=== PATIENT | female | born 1970 | race Caucasian/White ===

== ENCOUNTER 2016-11-25 18:14 | Emergency (ER) | payer OTHER ==
[~2016-11-25] VITALS: Ht 170.1 cm; Wt 116.1 kg
[~2016-11-25 18:14] MED LIST: ACETAMINOPHEN-H1 TA2 PO; AMOXICILLIN500 MG PO; ASPIRIN325 M2 PO; ASPIRIN81 M1 PO; BACTRIM DS 8001 TA1 PO; BISACODYL LAXATI5 MG PO; BUSPAR5 MG PO; CLARITIN REDITAB5 MG PO; CLARITIN10 MG PO; EFFEXOR XR37.5 M1 PO; EFFEXOR XR75 M1 PO; ESTRIOL; ESTROL PO; FLEXERIL5 MG PO; HYDROCODONE BIT1 T11 PO; LATU40TA1 PO; LIDEX0.05% T; Lovenox40 MG/0.4 SC; MAPAP325 MG PO; MILK OF MA400 MG/51 PO; MOTRIN600 MG PO; MOTRIN800 MG PO; Motrin,Rufen800 MG PO; NAPROSYN500 MG PO; OMEPRAZOLE20 M1 PO; ONDANSETRON H2 MG/ML IV; PANTOPRAZOLE SO40 MG PO; PENICILLIN VK500 MG PO; PRILOSEC20 MG PO; PRISTIQ100 MG PO; Peridex 473 ML473 ML PO; TRAMADOL HCL50 MG PO; ULTRAM50 MG PO; VISTARIL50 MG PO; VITAMIN D50000 I3 PO; ZOFRAN ODT4 MG SL; ZOLOFT50 MG PO
[2016-11-25] MEDS ORDERED: PREDNISONE10 MG PO (18:46)
[2016-11-25] MEDS ORDERED: CLARITIN10 MG PO (18:46)
[2016-11-25] MEDS ORDERED: ROBITUSSIN AC 110 ML PO (18:46)
[2016-11-25] MEDS ORDERED: FLONASE ALLERG9.9 ML NAS (18:46)
[2016-11-25] MEDS ORDERED: AVPAK AZITHROM250 M1 PO (20:11)
== END 2016-11-25 20:17 | disposition home or self-care (01) ==
LOC: ED 18:14
DX: J06.9 Acute upper respiratory infection, unspecified (principal); R03.0 Elevated blood-pressure reading, without diagnosis of hypertension; F41.9 Anxiety disorder, unspecified; K21.9 Gastro-esophageal reflux disease without esophagitis; F32.9 Major depressive disorder, single episode, unspecified; F17.200 Nicotine dependence, unspecified, uncomplicated; Z88.8 Allergy status to other drugs, medicaments and biological substances; Z79.899 Other long term (current) drug therapy; Z86.73 Personal history of transient ischemic attack (TIA), and cerebral infarction without residual deficits

== ENCOUNTER 2017-10-18 17:19 | Inpatient (IN) | payer OTHER ==
[~2017-10-18] VITALS: Ht 175.2 cm; Wt 116.1 kg
--- NOTE | ~2017-10-18 | CON ---
[place], [place] REPORT OF CONSULTATION NAME: ARTI MCGUIRE UNIT #: [id number] ROOM: [facility] DOCTOR: SHARON GONZALEZ MD BIRTHDATE: [birth year] DOS: CHIEF COMPLAINT: "I'm doing fine." HISTORY OF PRESENT ILLNESS: A 47-year-old female presented to the ER after taking 30 doxepin and that she did on an impulse after she got into fight with her daughter. Then she regretted that, though she has history of depression for almost 3 years and has been on different antidepressants in the past, now she had been taking Prozac and doxepin. 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 She did not plan to do that, this was just an impulsive act and then she got here and now she is admitted at ICU. Today she reports that she made a mistake and is not feeling depressed. She has no crying spells. She did sleep well at night. Appetite is okay and had her breakfast. There is no hopelessness and no suicidal thoughts at present and she is geovanni for safety. She has an appointment with her counselor and psychiatrist next week. PAST MEDICAL HISTORY: Obesity and GERD. FAMILY HISTORY: Nothing relevant. SUBSTANCE ABUSE: No alcohol or drugs. MENTAL STATUS EXAMINATION: The patient is lady of stated age, moderately obese, sitting comfortably, readily engaged. Fair hygiene. Fair eye contact. Speech normal rate, tone, goal directed. Mood euthymic, broad range affect, did smile appropriately. No evidence of psychosis at present. No nickie or hypomania and no thoughts of self-harm or harm to others and she is geovanni for safety. ASSESSMENT: History of depression. PLAN: She has no prior history of self-injurious behavior and this was an impulsive act which she regrets and she is geovanni for safety and she has followup appointments with her psychiatrist and the counselor, so she can be discharged when medically stable. SHARON GONZALEZ MD CM:CONSTR:REPORT OF CONSULTATION [id number] 10/19/17 1033 interface
[~2017-10-18 17:19] MED LIST changes: +AVPAK AZITHROM250 M1 PO; +FLONASE ALLERG9.9 ML NAS; +PREDNISONE10 MG PO; +ROBITUSSIN AC 110 ML PO
[2017-10-18 17:25] VITALS: BP 121/85
[2017-10-18 17:44] LABS: BILIRUBIN NEGATIVE (NEGATIVE); BLOOD NEGATIVE (NEGATIVE); CLARITY SL CLOUDY (CLEAR); COLOR YELLOW (YELLOW); GLUCOSE NEGATIVE (NEGATIVE); KETONE NEGATIVE (NEGATIVE); LEUKO ESTERASE NEGATIVE (NEGATIVE); NITRITE NEGATIVE (NEGATIVE); UROBILINOGEN 0.2 E.U./dl (0.2-1.0)
[2017-10-18 17:51] LABS: BACTERIA 4+; EPITHELIAL CELLS 20-25; RBC 0-2 rbc/hpf (0-2)
[2017-10-18 17:52] LABS: URINE AMPHETAMINES < 1000 (1000ng/ml); URINE BARBITURATES < 200 (200ng/ml); URINE BENZODIAZEPINES < 200 (200ng/ml); URINE CANNABINOIDS (THC) < 50 (50ng/ml); URINE COCAINE < 300 (300ng/ml); URINE METHADONE < 300 (300ng/ml); URINE OPIATES < 300 (300ng/ml)
[2017-10-18 17:53] LABS: URINE PHENCYCLIDINE < 25 (25ng/ml)
[2017-10-18 17:57] LABS: BASO # 0.1 10*3/uL (0.0-0.1); BASO % 0.5 % (0.0-1.0); EOS # 0.1 10*3/uL (0.0-0.4); HEMATOCRIT 43.1 % (37.0-47.0); HEMOGLOBIN 14.1 g/dl (12.0-16.0); LYMPH # 3.8 10*3/uL (1.3-4.4); LYMPH % 34.1 % (27.0-41.0); MEAN CELL VOLUME 84.8 fl (81.0-99.0); MEAN CORPUSCULAR HGB 27.8 pg (27.0-31.0); MEAN CORPUSCULAR HGB CONC 32.7 g/dl (33.0-37.0); MEAN PLATELET VOLUME 10.6 fl (9.6-12.3); MONO # 0.7 10*3/uL (0.1-1.0); MONO % 5.9 % (3.0-9.0); NEUT # 6.5 10*3/uL (2.3-7.9); NEUT % 58.3 % (47.0-73.0); PLATELET COUNT AUTOMATED 407 10*3/uL (130-400); RED BLOOD COUNT 5.08 10*6/uL (4.10-5.10); RED CELL DISTRI WIDTH 14.4 % (0-14.5); WHITE BLOOD COUNT 11.1 10*3/uL (4.8-10.8)
[2017-10-18 17:58] VITALS: BP 121/72
[2017-10-18 18:11] LABS: ACETAMINOPHEN (TYLENOL) < 2.0 ug/ml (10-30); ALBUMIN 3.5 gm/dl (3.1-4.5); ALKALINE PHOSPHATASE 109 U/L (45-117); BUN 12 mg/dl (7-24); CHLORIDE 111 mmol/L (98-107); CREATININE 0.97 mg/dL (0.55-1.02); POTASSIUM 3.4 mmol/L (3.5-5.1); SGOT/AST 13 IU/L (3-35); SGPT/ALT 27 U/L (12-78); SODIUM 141 mmol/L (136-145); TOTAL PROTEIN 7.5 gm/dL (6.4-8.2)
[2017-10-18] MEDS ORDERED: HYDROXYZINE HCL25 M1 PO (18:14)
[2017-10-18] MEDS ORDERED: ALL DAY ALLERGY10 MG PO (18:15)
[2017-10-18] MEDS ORDERED: TOPIRAMATE100 M2 PO (18:17)
[2017-10-18 18:19] LABS: B-hCG (QUALITATIVE) BORDERLINE (NEGATIVE); ETHYL ALCOHOL < 3.0 mg/dl (<3)
[2017-10-18] MEDS ORDERED: PRAMIPEXOLE DIHY1 MG PO (18:19)
[2017-10-18] MEDS ORDERED: FLUOXETINE HYDR20 M1 PO (18:20)
[2017-10-18] MEDS ORDERED: NUVIGIL150 MG PO (18:21)
[2017-10-18] MEDS ORDERED: LATUDA40 M1 PO (18:23)
[2017-10-18 19:25] VITALS: BP 112/67
[2017-10-18 20:30] VITALS: BP 101/65
--- NOTE | 2017-10-18 20:30 | NUR ---
A 47, admitted to ICCU, under the services of FANI Mason DO with a diagnosis of OVERDOSE. Chief complaint is SUICIDE IDEATIONS. Patient arrived via ambulatory from ER. Monitor applied. Initial assessment completed. Vital signs taken and recorded. FANI MASON DO notified of admission to the unit. Orders received. See assessment for past medical history, medications and allergies. Patient and/or family oriented to unit. [facility] ICCU visitation policy reviewed. Clothing/patient valuable form completed. DOMINICK KO
[2017-10-19] VITALS (25 sets, daily range): BP systolic 90–139; BP diastolic 42–72
--- NOTE | 2017-10-19 | NUR ---
PATIENT BP 97/53 CALLED SARAI ORDRE IV FLUID BOLUS.
[2017-10-19 00:25] LABS: BUN 9 mg/dl (7-24); CHLORIDE 115 mmol/L (98-107); CREATININE 0.81 mg/dL (0.55-1.02); POTASSIUM 3.7 mmol/L (3.5-5.1); SODIUM 144 mmol/L (136-145)
--- NOTE | 2017-10-19 01:30 | NUR ---
CALLED TEJA MOON WITH PATIENTS BP 83/48 ANOTHER FLUID BOLUS ORDRED AND RAFA ALL AFTER FINISHED.
--- NOTE | 2017-10-19 01:53 | NUR ---
CALLED DOCTOR NONA PATIENT BP IS 81/51 HE SAID OK HE WOULD LET DOCTOR SARAI KNOW.
--- NOTE | 2017-10-19 02:30 | NUR ---
PATIENT STARTED ON LEVOPHED FOR PATIENTS BP CURRENTLY OF 90/46.
[2017-10-19 06:05] LABS: BASO # 0.1 10*3/uL (0.0-0.1); BASO % 0.5 % (0.0-1.0); EOS # 0.1 10*3/uL (0.0-0.4); EOS % 1.4 % (1.0-4.0); HEMATOCRIT 39.4 % (37.0-47.0); HEMOGLOBIN 12.7 g/dl (12.0-16.0); LYMPH # 4.3 10*3/uL (1.3-4.4); LYMPH % 47.4 % (27.0-41.0); MEAN CELL VOLUME 87.6 fl (81.0-99.0); MEAN CORPUSCULAR HGB 28.2 pg (27.0-31.0); MEAN CORPUSCULAR HGB CONC 32.2 g/dl (33.0-37.0); MONO # 0.7 10*3/uL (0.1-1.0); MONO % 8.1 % (3.0-9.0); NEUT # 3.9 10*3/uL (2.3-7.9); NEUT % 42.5 % (47.0-73.0); PLATELET COUNT AUTOMATED 362 10*3/uL (130-400); RED CELL DISTRI WIDTH 14.9 % (0-14.5); WHITE BLOOD COUNT 9.1 10*3/uL (4.8-10.8)
[2017-10-19 06:18] LABS: ACT PARTIAL THROMBO TIME 26.7 SECONDS (20.8-31.5)
[2017-10-19 06:19] LABS: BUN 8 mg/dl (7-24); CHLORIDE 118 mmol/L (98-107); CHOLESTEROL 178 mg/dL (<200); CREATININE 0.79 mg/dL (0.55-1.02); PHOSPHOROUS 2.1 mg/dL (2.5-4.9); POTASSIUM 3.8 mmol/L (3.5-5.1); SGOT/AST 11 IU/L (3-35); SGPT/ALT 20 U/L (12-78); SODIUM 145 mmol/L (136-145); TOTAL PROTEIN 6.1 gm/dL (6.4-8.2); TRIGLYCERIDES 206 mg/dl (<150); VLDL CHOLESTEROL 41 mg/dL (6-40)
[2017-10-19 06:26] LABS: ALKALINE PHOSPHATASE 87 U/L (45-117); HDL CHOLESTEROL 36 mg/dl (40-60); LDL CHOLESTEROL 101 mg/dL (9-159)
--- NOTE | 2017-10-19 07:15 | NUR ---
LEVAPHED TITRATED OFF MAP >66
[2017-10-19 08:41] LABS: VITAMIN D, 25-HYDROXY 16.4 ng/mL (30-100)
--- NOTE | 2017-10-19 08:47 | NUR ---
DR SINHA NOTIFIED OF NEW CONSULT
--- NOTE | 2017-10-19 09:00 | NUR ---
[facility] [employer] CALLED AND AND UPDATED AMD THEY ARE OK WITH PTS DIS CHARGE TO HOME
--- NOTE | 2017-10-19 10:30 | NUR ---
DR SINHA HERE AND CLEARED PT FOR DISCHARGE HOME
--- NOTE | 2017-10-19 12:30 | NUR ---
DC TO HOME
== END 2017-10-19 12:30 | disposition home or self-care (01) | DRG 918 ==
LOC: ED 17:19 → EDHOLD 17:53 → ICCU 19:15
PROVIDERS: Emergency Medicine; Family Medicine; ADMIT Emergency Medicine
DX: T43.012A Poisoning by tricyclic antidepressants, intentional self-harm, initial encounter (principal); R65.10 Systemic inflammatory response syndrome (SIRS) of non-infectious origin without acute organ dysfunction; I95.9 Hypotension, unspecified; R45.851 Suicidal ideations; F33.9 Major depressive disorder, recurrent, unspecified; E87.6 Hypokalemia; F19.90 Other psychoactive substance use, unspecified, uncomplicated; E66.9 Obesity, unspecified; K21.9 Gastro-esophageal reflux disease without esophagitis; E78.5 Hyperlipidemia, unspecified; G25.81 Restless legs syndrome; R73.9 Hyperglycemia, unspecified; F41.1 Generalized anxiety disorder; F17.200 Nicotine dependence, unspecified, uncomplicated; Z90.49 Acquired absence of other specified parts of digestive tract; Z71.6 Tobacco abuse counseling; Y92.89 Other specified places as the place of occurrence of the external cause; Z79.899 Other long term (current) drug therapy; Z90.710 Acquired absence of both cervix and uterus; Z90.81 Acquired absence of spleen; Z82.49 Family history of ischemic heart disease and other diseases of the circulatory system; Z82.3 Family history of stroke; Z83.6 Family history of other diseases of the respiratory system; Z68.37 Body mass index [BMI] 37.0-37.9, adult; I25.2 Old myocardial infarction

== ENCOUNTER 2017-11-30 21:16 | Emergency (ER) | payer OTHER ==
[~2017-11-30] VITALS: Ht 170.1 cm; Wt 120.7 kg
[~2017-11-30 21:16] MED LIST changes: +ALL DAY ALLERGY10 MG PO; +FLUOXETINE HYDR20 M1 PO; +HYDROXYZINE HCL25 M1 PO; +LATUDA40 M1 PO; +NUVIGIL150 MG PO; +PRAMIPEXOLE DIHY1 MG PO; +TOPIRAMATE100 M2 PO
[2017-11-30] MEDS ORDERED: MIRTAZAPINE15 M2 PO (21:27)
[2017-11-30] MEDS ORDERED: OLANZAPINE5 MG PO (21:28)
[2017-11-30 23:34] LABS: HEMATOCRIT 40.9 % (37.0-47.0); HEMOGLOBIN 13.5 g/dl (12.0-16.0); MEAN CELL VOLUME 86.8 fl (81.0-99.0); MEAN CORPUSCULAR HGB 28.7 pg (27.0-31.0); MEAN PLATELET VOLUME 10.7 fl (9.6-12.3); PLATELET COUNT AUTOMATED 370 10*3/uL (130-400); RED BLOOD COUNT 4.71 10*6/uL (4.10-5.10); RED CELL DISTRI WIDTH 15.1 % (0-14.5); WHITE BLOOD COUNT 10.7 10*3/uL (4.8-10.8)
[2017-11-30 23:40] LABS: ALBUMIN 3.4 gm/dl (3.1-4.5); ALKALINE PHOSPHATASE 99 U/L (45-117); BUN 14 mg/dl (7-24); CHLORIDE 109 mmol/L (98-107); CREATININE 0.78 mg/dL (0.55-1.02); POTASSIUM 3.5 mmol/L (3.5-5.1); SGOT/AST 17 IU/L (3-35); SGPT/ALT 31 U/L (12-78); SODIUM 139 mmol/L (136-145); TOTAL PROTEIN 6.8 gm/dL (6.4-8.2)
[2017-11-30 23:52] LABS: BASOPHILS 1 % (0-1); PLATELET SUFFICIENCY NORMAL (NORMAL); TOTAL CELLS COUNTED 100 #CELLS
[2017-12-01 01:54] LABS: BILIRUBIN NEGATIVE (NEGATIVE); BLOOD NEGATIVE (NEGATIVE); CLARITY CLEAR (CLEAR); COLOR YELLOW (YELLOW); GLUCOSE NEGATIVE (NEGATIVE); KETONE NEGATIVE (NEGATIVE); LEUKO ESTERASE NEGATIVE (NEGATIVE); NITRITE NEGATIVE (NEGATIVE); PH 5.5 (5.0-9.0); UROBILINOGEN 0.2 E.U./dl (0.2-1.0)
[2017-12-01 02:05] LABS: RBC 0-2 rbc/hpf (0-2); WBC 0-2 wbc/hpf (0-5)
[2017-12-01] MEDS ORDERED: ANAPROX DS550 MG PO (03:34)
[2017-12-01] MEDS ORDERED: ULTRAM50 MG PO (03:34)
== END 2017-12-01 04:10 | disposition home or self-care (01) ==
LOC: ED 21:16
PROVIDERS: Emergency Medicine Emergency Medical Services
DX: B34.9 Viral infection, unspecified (principal); M25.572 Pain in left ankle and joints of left foot; M25.571 Pain in right ankle and joints of right foot; F17.200 Nicotine dependence, unspecified, uncomplicated; E78.5 Hyperlipidemia, unspecified; K21.9 Gastro-esophageal reflux disease without esophagitis; E66.9 Obesity, unspecified; E11.65 Type 2 diabetes mellitus with hyperglycemia; Z90.49 Acquired absence of other specified parts of digestive tract; Z90.710 Acquired absence of both cervix and uterus; Z79.899 Other long term (current) drug therapy; Z88.5 Allergy status to narcotic agent; Z68.39 Body mass index [BMI] 39.0-39.9, adult

== ENCOUNTER 2018-01-20 17:52 | Inpatient (IN) | payer OTHER ==
[~2018-01-20] VITALS: Ht 170.1 cm; Wt 124.3 kg
--- NOTE | ~2018-01-20 | ST ---
[place], [place] EXERCISE STRESS TEST REPORT NAME: ARIT MCGUIRE [facility] #: [id number] UNIT #: [id number] ROOM: 529 DOCTOR: MADHAV CARMICHAEL MD BIRTHDATE: [birth year] DOS: 01/21/2018 LEXISCAN STRESS EKG REFERRING PHYSICIAN: Dr. Espinal. INDICATION: Central chest pain. The patient underwent standard protocol Lexiscan stress EKG. Baseline EKG showed normal sinus rhythm, no ischemic changes. Baseline heart rate is 65 with a blood pressure 116/70. The patient's peak heart rate was 92 with a blood pressure of 102/80. The patient had no chest pain, no shortness of breath, no EKG changes. SUMMARY OF FINDINGS: Unremarkable Lexiscan stress EKG. Please see separate report for perfusion scan results. MADHAV CARMICHAEL MD CM:STRESS:EXERCISE STRESS TEST REPORT [id number] MADHAV CARMICHAEL MD
[~2018-01-20 17:52] MED LIST changes: +ANAPROX DS550 MG PO; +MIRTAZAPINE15 M2 PO; +OLANZAPINE5 MG PO
[2018-01-20 18:10] LABS: HEMATOCRIT 41.2 % (37.0-47.0); HEMOGLOBIN 13.6 g/dl (12.0-16.0); MEAN CELL VOLUME 86.2 fl (81.0-99.0); MEAN CORPUSCULAR HGB 28.5 pg (27.0-31.0); MEAN PLATELET VOLUME 10.7 fl (9.6-12.3); PLATELET COUNT AUTOMATED 381 10*3/uL (130-400); RED BLOOD COUNT 4.78 10*6/uL (4.10-5.10); RED CELL DISTRI WIDTH 14.6 % (0-14.5)
[2018-01-20 18:21] LABS: ACT PARTIAL THROMBO TIME 25.7 SECONDS (20.8-31.5); INTERNATIONAL NORM RATIO 0.9 (2.0-3.5)
[2018-01-20 18:22] VITALS: BP 138/91
[2018-01-20 18:26] LABS: ALBUMIN 3.8 gm/dl (3.1-4.5); ALKALINE PHOSPHATASE 99 U/L (45-117); BUN 10 mg/dl (7-24); CHLORIDE 106 mmol/L (98-107); POTASSIUM 4.2 mmol/L (3.5-5.1); SGOT/AST 32 IU/L (3-35); SGPT/ALT 32 U/L (12-78); SODIUM 136 mmol/L (136-145); TOTAL PROTEIN 7.7 gm/dL (6.4-8.2)
[2018-01-20 18:27] LABS: TROPONIN I < 0.015 ng/ml (<0.045)
[2018-01-20 18:29] LABS: ATYPICAL LYMPHS 4 % (0-0); BASOPHILS 1 % (0-1); PLATELET SUFFICIENCY NORMAL (NORMAL); TARGET CELLS FEW; TOTAL CELLS COUNTED 100 #CELLS
[2018-01-20] MEDS ORDERED: GEODON40 MG PO (18:32)
[2018-01-20 18:50] VITALS: BP 115/74
[2018-01-20 19:40] VITALS: BP 115/60
[2018-01-20 20:00] VITALS: BP 117/66
[2018-01-20] MEDS ORDERED: TRAMADOL HCL50 MG PO (20:40)
[2018-01-20] MEDS ORDERED: IBU800 M1 PO (20:43)
[2018-01-21] VITALS: BP 106/66
[2018-01-21 06:01] LABS: BASO # 0.1 10*3/uL (0.0-0.1); BASO % 0.9 % (0.0-1.0); EOS # 0.2 10*3/uL (0.0-0.4); EOS % 1.9 % (1.0-4.0); HEMATOCRIT 42.3 % (37.0-47.0); HEMOGLOBIN 13.7 g/dl (12.0-16.0); LYMPH # 4.9 10*3/uL (1.3-4.4); LYMPH % 52.5 % (27.0-41.0); MEAN CELL VOLUME 89.1 fl (81.0-99.0); MEAN CORPUSCULAR HGB 28.8 pg (27.0-31.0); MEAN CORPUSCULAR HGB CONC 32.4 g/dl (33.0-37.0); MEAN PLATELET VOLUME 11.1 fl (9.6-12.3); MONO # 0.7 10*3/uL (0.1-1.0); MONO % 7.8 % (3.0-9.0); NEUT # 3.4 10*3/uL (2.3-7.9); NEUT % 36.7 % (47.0-73.0); PLATELET COUNT AUTOMATED 398 10*3/uL (130-400); RED BLOOD COUNT 4.75 10*6/uL (4.10-5.10); RED CELL DISTRI WIDTH 14.9 % (0-14.5); WHITE BLOOD COUNT 9.3 10*3/uL (4.8-10.8)
[2018-01-21 06:11] LABS: BUN 16 mg/dl (7-24); CHLORIDE 111 mmol/L (98-107); CHOLESTEROL 202 mg/dL (<200); CREATININE 0.99 mg/dL (0.55-1.02); POTASSIUM 4.2 mmol/L (3.5-5.1); SODIUM 142 mmol/L (136-145); TRIGLYCERIDES 228 mg/dl (<150); VLDL CHOLESTEROL 46 mg/dL (6-40)
[2018-01-21 06:44] LABS: HDL CHOLESTEROL 39 mg/dl (40-60); LDL CHOLESTEROL 117 mg/dL (9-159)
[2018-01-21 08:00] VITALS: BP 97/63
[2018-01-21 08:17] LABS: VITAMIN D, 25-HYDROXY 13.3 ng/mL (30-100)
[2018-01-21 12:00] VITALS: BP 110/59
[2018-01-21] MEDS ORDERED: TOPAMAX100 M1 PO (12:55)
[2018-01-21 16:00] VITALS: BP 108/55
[2018-01-21] MEDS ORDERED: ATORVASTATIN CA40 M1 PO (16:28)
[2018-01-21] MEDS ORDERED: NICODERM CQ1 EAC2 T (16:33)
== END 2018-01-21 17:36 | disposition home or self-care (01) | DRG 391 ==
LOC: ED 17:52 → 5E 18:44 → EDHOLD 18:44 → 5E 19:06
PROVIDERS: Internal Medicine; Nurse Practitioner Family
PROC: 4A02XM4 Measurement of Cardiac Total Activity, External Approach (ICD-10-PCS; principal; 2018-01-21)
PROC: 3E073KZ Introduction of Other Diagnostic Substance into Coronary Artery, Percutaneous Approach (ICD-10-PCS; 2018-01-21)
DX: K21.9 Gastro-esophageal reflux disease without esophagitis (principal); G93.5 Compression of brain; R65.10 Systemic inflammatory response syndrome (SIRS) of non-infectious origin without acute organ dysfunction; F33.9 Major depressive disorder, recurrent, unspecified; Z68.41 Body mass index [BMI] 40.0-44.9, adult; E78.5 Hyperlipidemia, unspecified; F41.1 Generalized anxiety disorder; R73.9 Hyperglycemia, unspecified; E66.9 Obesity, unspecified; R03.0 Elevated blood-pressure reading, without diagnosis of hypertension; R73.03 Prediabetes; H54.61 Unqualified visual loss, right eye, normal vision left eye; I34.0 Nonrheumatic mitral (valve) insufficiency; F17.210 Nicotine dependence, cigarettes, uncomplicated; Z82.3 Family history of stroke; Z82.49 Family history of ischemic heart disease and other diseases of the circulatory system; Z88.8 Allergy status to other drugs, medicaments and biological substances; Z71.6 Tobacco abuse counseling; Z82.5 Family history of asthma and other chronic lower respiratory diseases; Z90.49 Acquired absence of other specified parts of digestive tract; Z90.710 Acquired absence of both cervix and uterus; Z90.81 Acquired absence of spleen; Z79.899 Other long term (current) drug therapy

== ENCOUNTER 2018-02-22 19:08 | Emergency (ER) | payer OTHER ==
[~2018-02-22] VITALS: Ht 170.1 cm; Wt 120.2 kg
[~2018-02-22 19:08] MED LIST changes: +ATORVASTATIN CA40 M1 PO; +GEODON40 MG PO; +IBU800 M1 PO; +NICODERM CQ1 EAC2 T; +TOPAMAX100 M1 PO
[2018-02-22 20:30] LABS: HEMATOCRIT 43.1 % (37.0-47.0); HEMOGLOBIN 13.9 g/dl (12.0-16.0); MEAN CELL VOLUME 87.6 fl (81.0-99.0); MEAN CORPUSCULAR HGB 28.3 pg (27.0-31.0); MEAN CORPUSCULAR HGB CONC 32.3 g/dl (33.0-37.0); MEAN PLATELET VOLUME 10.7 fl (9.6-12.3); PLATELET COUNT AUTOMATED 369 10*3/uL (130-400); RED BLOOD COUNT 4.92 10*6/uL (4.10-5.10); RED CELL DISTRI WIDTH 14.6 % (0-14.5); WHITE BLOOD COUNT 10.8 10*3/uL (4.8-10.8)
[2018-02-22 20:43] LABS: ALBUMIN 3.5 gm/dl (3.1-4.5); ALKALINE PHOSPHATASE 108 U/L (45-117); BUN 12 mg/dl (7-24); CHLORIDE 121 mmol/L (98-107); CREATININE 0.94 mg/dL (0.55-1.02); POTASSIUM 4.3 mmol/L (3.5-5.1); SGOT/AST 14 IU/L (3-35); SGPT/ALT 28 U/L (12-78); SODIUM 155 mmol/L (136-145); TOTAL PROTEIN 7.2 gm/dL (6.4-8.2); URIC ACID 4.5 mg/dL (2.6-6.0)
[2018-02-22 21:12] LABS: ATYPICAL LYMPHS 8 % (0-0); PLATELET SUFFICIENCY NORMAL (NORMAL); TOTAL CELLS COUNTED 100 #CELLS
[2018-02-22] MEDS ORDERED: Motrin,Rufen800 MG PO (21:25)
== END 2018-02-22 21:30 | disposition home or self-care (01) ==
LOC: ED 19:08
PROVIDERS: Emergency Medicine Emergency Medical Services
DX: M65.9 Synovitis and tenosynovitis, unspecified (principal); K21.9 Gastro-esophageal reflux disease without esophagitis; E11.9 Type 2 diabetes mellitus without complications; F17.200 Nicotine dependence, unspecified, uncomplicated; Z88.8 Allergy status to other drugs, medicaments and biological substances; Z79.899 Other long term (current) drug therapy

== ENCOUNTER 2018-02-28 23:32 | Emergency (ER) | payer OTHER ==
[~2018-02-28] VITALS: Ht 170.1 cm; Wt 122.0 kg
== END 2018-03-01 01:54 | disposition home or self-care (01) ==
LOC: ED 23:32
DX: R51 Headache (principal); F17.200 Nicotine dependence, unspecified, uncomplicated; Z90.49 Acquired absence of other specified parts of digestive tract; Z90.710 Acquired absence of both cervix and uterus; Z79.899 Other long term (current) drug therapy; Z88.5 Allergy status to narcotic agent

== ENCOUNTER 2018-03-01 22:10 | Emergency (ER) | payer OTHER ==
[~2018-03-01] VITALS: Ht 170.1 cm; Wt 122.0 kg
== END 2018-03-02 00:45 | disposition home or self-care (01) ==
LOC: ED 22:10
DX: G43.909 Migraine, unspecified, not intractable, without status migrainosus (principal); F17.200 Nicotine dependence, unspecified, uncomplicated; E78.5 Hyperlipidemia, unspecified; K21.9 Gastro-esophageal reflux disease without esophagitis; E66.01 Morbid (severe) obesity due to excess calories; E11.65 Type 2 diabetes mellitus with hyperglycemia; Z90.49 Acquired absence of other specified parts of digestive tract; Z98.890 Other specified postprocedural states; Z90.710 Acquired absence of both cervix and uterus; Z88.5 Allergy status to narcotic agent; Z79.899 Other long term (current) drug therapy

== ENCOUNTER 2018-03-22 22:21 | Emergency (ER) | payer OTHER ==
[~2018-03-22] VITALS: Ht 170.1 cm; Wt 118.8 kg
== END 2018-03-23 00:23 | disposition home or self-care (01) ==
LOC: ED 22:21
DX: S60.221A Contusion of right hand, initial encounter (principal); S00.81XA Abrasion of other part of head, initial encounter; R51 Headache; F17.200 Nicotine dependence, unspecified, uncomplicated; Z90.710 Acquired absence of both cervix and uterus; Z98.890 Other specified postprocedural states; Z90.49 Acquired absence of other specified parts of digestive tract; Z79.899 Other long term (current) drug therapy; Z88.5 Allergy status to narcotic agent; Y04.0XXA Assault by unarmed brawl or fight, initial encounter; Y93.89 Activity, other specified; Y92.099 Unspecified place in other non-institutional residence as the place of occurrence of the external cause; Y99.9 Unspecified external cause status

== ENCOUNTER 2018-04-17 19:27 | Emergency (ER) | payer OTHER ==
[~2018-04-17] VITALS: Ht 170.1 cm; Wt 114.3 kg
== END 2018-04-17 20:09 | disposition home or self-care (01) ==
LOC: ED 19:27
DX: S05.02XA Injury of conjunctiva and corneal abrasion without foreign body, left eye, initial encounter (principal); F17.200 Nicotine dependence, unspecified, uncomplicated; E78.5 Hyperlipidemia, unspecified; K21.9 Gastro-esophageal reflux disease without esophagitis; E11.65 Type 2 diabetes mellitus with hyperglycemia; G43.909 Migraine, unspecified, not intractable, without status migrainosus; Z90.710 Acquired absence of both cervix and uterus; Z90.49 Acquired absence of other specified parts of digestive tract; Z98.890 Other specified postprocedural states; Z79.899 Other long term (current) drug therapy; Z88.5 Allergy status to narcotic agent; X58.XXXA Exposure to other specified factors, initial encounter; Y93.89 Activity, other specified; Y92.89 Other specified places as the place of occurrence of the external cause; Y99.9 Unspecified external cause status

== ENCOUNTER 2018-11-06 13:34 | Emergency (ER) | payer OTHER ==
[~2018-11-06] VITALS: Ht 170.1 cm; Wt 118.8 kg
[2018-11-06] MEDS ORDERED: LEVOFLOXACIN500 MG PO (16:03)
[2018-11-06] MEDS ORDERED: Fioricet 325 MG1 TAB PO (16:03)
[2019-04-09] MEDS ORDERED: LATUDA60 M1 PO (12:16)
[2019-04-09] MEDS ORDERED: VISTARIL50 MG PO (16:23)
[2019-04-09] MEDS ORDERED: NAPROXEN500 M1 PO (16:24)
[2019-04-09] MEDS ORDERED: PROMETHAZINE25 M1 PO (16:26)
[2019-04-09] MEDS ORDERED: ACID REDUCER 1150 MG PO (16:28)
== END 2018-11-06 16:11 | disposition home or self-care (01) ==
LOC: ED 13:34
DX: J40 Bronchitis, not specified as acute or chronic (principal); J32.9 Chronic sinusitis, unspecified; E78.5 Hyperlipidemia, unspecified; K21.9 Gastro-esophageal reflux disease without esophagitis; G43.909 Migraine, unspecified, not intractable, without status migrainosus; E66.01 Morbid (severe) obesity due to excess calories; F17.200 Nicotine dependence, unspecified, uncomplicated; Z88.8 Allergy status to other drugs, medicaments and biological substances; Z79.899 Other long term (current) drug therapy; Z90.49 Acquired absence of other specified parts of digestive tract; Z90.710 Acquired absence of both cervix and uterus

== ENCOUNTER 2018-11-18 20:23 | Emergency (ER) | payer OTHER ==
[~2018-11-18] VITALS: Ht 170.1 cm; Wt 117.9 kg
[~2018-11-18 20:23] MED LIST changes: +Fioricet 325 MG1 TAB PO; +LEVOFLOXACIN500 MG PO
== END 2018-11-18 22:03 | disposition home or self-care (01) ==
LOC: ED 20:23
DX: G43.909 Migraine, unspecified, not intractable, without status migrainosus (principal); F17.200 Nicotine dependence, unspecified, uncomplicated; Z79.899 Other long term (current) drug therapy; Z88.8 Allergy status to other drugs, medicaments and biological substances

== ENCOUNTER 2018-11-22 20:18 | Emergency (ER) | payer OTHER ==
[~2018-11-22] VITALS: Ht 170.1 cm; Wt 117.9 kg
[2019-04-09] MEDS ORDERED: LATUDA60 M1 PO (12:16)
[2019-04-09] MEDS ORDERED: VISTARIL50 MG PO (16:23)
[2019-04-09] MEDS ORDERED: NAPROXEN500 M1 PO (16:24)
[2019-04-09] MEDS ORDERED: PROMETHAZINE25 M1 PO (16:26)
[2019-04-09] MEDS ORDERED: ACID REDUCER 1150 MG PO (16:28)
== END 2018-11-23 00:34 | disposition home or self-care (01) ==
LOC: ED 20:18
DX: G43.909 Migraine, unspecified, not intractable, without status migrainosus (principal); K21.9 Gastro-esophageal reflux disease without esophagitis; E66.01 Morbid (severe) obesity due to excess calories; F17.200 Nicotine dependence, unspecified, uncomplicated; Z88.8 Allergy status to other drugs, medicaments and biological substances; Z79.899 Other long term (current) drug therapy

== ENCOUNTER 2018-12-01 18:34 | Emergency (ER) | payer OTHER ==
[~2018-12-01] VITALS: Ht 170.1 cm; Wt 120.2 kg
[2018-12-01] MEDS ORDERED: FLONASE ALLERG9.9 ML NAS (19:55)
[2018-12-01] MEDS ORDERED: ONDANSETRON4 MG SL (19:55)
[2018-12-01] MEDS ORDERED: CEPACOL SORE T1 EACH MM (19:56)
== END 2018-12-01 20:10 | disposition home or self-care (01) ==
LOC: ED 18:34
DX: J06.9 Acute upper respiratory infection, unspecified (principal); E78.5 Hyperlipidemia, unspecified; G43.909 Migraine, unspecified, not intractable, without status migrainosus; E66.01 Morbid (severe) obesity due to excess calories; F17.200 Nicotine dependence, unspecified, uncomplicated; Z90.710 Acquired absence of both cervix and uterus; Z90.49 Acquired absence of other specified parts of digestive tract

== ENCOUNTER 2018-12-28 16:43 | Emergency (ER) | payer OTHER ==
[~2018-12-28] VITALS: Ht 170.1 cm; Wt 120.2 kg
[~2018-12-28 16:43] MED LIST changes: +CEPACOL SORE T1 EACH MM; +ONDANSETRON4 MG SL
[2019-04-09] MEDS ORDERED: LATUDA60 M1 PO (12:16)
[2019-04-09] MEDS ORDERED: VISTARIL50 MG PO (16:23)
[2019-04-09] MEDS ORDERED: NAPROXEN500 M1 PO (16:24)
[2019-04-09] MEDS ORDERED: PROMETHAZINE25 M1 PO (16:26)
[2019-04-09] MEDS ORDERED: ACID REDUCER 1150 MG PO (16:28)
== END 2018-12-28 19:02 | disposition home or self-care (01) ==
LOC: ED 16:43
DX: G43.909 Migraine, unspecified, not intractable, without status migrainosus (principal); F17.200 Nicotine dependence, unspecified, uncomplicated; Z90.710 Acquired absence of both cervix and uterus; Z90.49 Acquired absence of other specified parts of digestive tract; Z88.8 Allergy status to other drugs, medicaments and biological substances; Z79.899 Other long term (current) drug therapy

== ENCOUNTER → 2019-01-04 | Outpatient (CLI) | payer OTHER ==
[~2019-01-04] MED LIST changes: +ACID REDUCER 1150 MG PO; +CILOXAN 5 ML5 ML OPH; +IBUPROFEN600 MG PO; +LATUDA60 M1 PO; +NAPROXEN500 M1 PO; +PROMETHAZINE25 M1 PO
[2019-01-04 08:08] LABS: BASO # 0.1 10*3/uL (0.0-0.1); BASO % 0.8 % (0.0-1.0); EOS # 0.2 10*3/uL (0.0-0.4); EOS % 2.1 % (1.0-4.0); HEMATOCRIT 44.3 % (37.0-47.0); HEMOGLOBIN 14.4 g/dl (12.0-16.0); LYMPH # 4.9 10*3/uL (1.3-4.4); LYMPH % 46.6 % (27.0-41.0); MEAN CELL VOLUME 89.5 fl (81.0-99.0); MEAN CORPUSCULAR HGB 29.1 pg (27.0-31.0); MEAN CORPUSCULAR HGB CONC 32.5 g/dl (33.0-37.0); MEAN PLATELET VOLUME 10.5 fl (9.6-12.3); MONO # 0.7 10*3/uL (0.1-1.0); MONO % 6.8 % (3.0-9.0); NEUT # 4.6 10*3/uL (2.3-7.9); NEUT % 43.4 % (47.0-73.0); PLATELET COUNT AUTOMATED 367 10*3/uL (130-400); RED BLOOD COUNT 4.95 10*6/uL (4.10-5.10); RED CELL DISTRI WIDTH 14.6 % (0-14.5); WHITE BLOOD COUNT 10.5 10*3/uL (4.8-10.8)
[2019-01-04 08:35] LABS: ALBUMIN 3.6 gm/dl (3.1-4.5); ALKALINE PHOSPHATASE 109 U/L (45-117); BUN 11 mg/dl (7-24); CHLORIDE 108 mmol/L (98-107); CREATININE 0.84 mg/dL (0.55-1.02); POTASSIUM 4.1 mmol/L (3.5-5.1); SGOT/AST 15 IU/L (3-35); SGPT/ALT 29 U/L (12-78); SODIUM 139 mmol/L (136-145); TOTAL PROTEIN 7.4 gm/dL (6.4-8.2)
== END | disposition home or self-care (01) ==
LOC: LAB 07:46
PROVIDERS: Psychiatry & Neurology Neurology
DX: G43.719 Chronic migraine without aura, intractable, without status migrainosus (principal); R61 Generalized hyperhidrosis; R63.0 Anorexia

== ENCOUNTER → 2019-01-12 | Outpatient (CLI) | payer OTHER | END | disposition home or self-care (01) | LOC: MRI 09:00 | DX: H74.8X1 Other specified disorders of right middle ear and mastoid (principal); Q04.8 Other specified congenital malformations of brain; R61 Generalized hyperhidrosis; G43.909 Migraine, unspecified, not intractable, without status migrainosus; H53.8 Other visual disturbances ==

== ENCOUNTER 2019-01-23 15:10 | Emergency (ER) | payer OTHER ==
[~2019-01-23] VITALS: Ht 170.1 cm; Wt 120.2 kg
[~2019-01-23 15:10] MED LIST changes: -ACID REDUCER 1150 MG PO; -CILOXAN 5 ML5 ML OPH; -IBUPROFEN600 MG PO; -LATUDA60 M1 PO; -NAPROXEN500 M1 PO; -PROMETHAZINE25 M1 PO
[2019-04-09] MEDS ORDERED: LATUDA60 M1 PO (12:16)
[2019-04-09] MEDS ORDERED: VISTARIL50 MG PO (16:23)
[2019-04-09] MEDS ORDERED: NAPROXEN500 M1 PO (16:24)
[2019-04-09] MEDS ORDERED: PROMETHAZINE25 M1 PO (16:26)
[2019-04-09] MEDS ORDERED: ACID REDUCER 1150 MG PO (16:28)
== END 2019-01-23 17:40 | disposition home or self-care (01) ==
LOC: ED 15:10
DX: G43.909 Migraine, unspecified, not intractable, without status migrainosus (principal); F17.200 Nicotine dependence, unspecified, uncomplicated; Z88.8 Allergy status to other drugs, medicaments and biological substances; Z79.899 Other long term (current) drug therapy

== ENCOUNTER 2019-03-05 13:14 | Emergency (ER) | payer OTHER ==
[~2019-03-05] VITALS: Ht 170.1 cm; Wt 120.2 kg
[2019-03-05] MEDS ORDERED: CILOXAN 5 ML5 ML OPH (14:15)
[2019-03-05] MEDS ORDERED: IBUPROFEN600 MG PO (14:15)
[2019-04-09] MEDS ORDERED: LATUDA60 M1 PO (12:16)
[2019-04-09] MEDS ORDERED: VISTARIL50 MG PO (16:23)
[2019-04-09] MEDS ORDERED: NAPROXEN500 M1 PO (16:24)
[2019-04-09] MEDS ORDERED: PROMETHAZINE25 M1 PO (16:26)
[2019-04-09] MEDS ORDERED: ACID REDUCER 1150 MG PO (16:28)
== END 2019-03-05 14:23 | disposition home or self-care (01) ==
LOC: ED 13:14
DX: H16.002 Unspecified corneal ulcer, left eye (principal); F17.200 Nicotine dependence, unspecified, uncomplicated; Z79.899 Other long term (current) drug therapy; Z88.8 Allergy status to other drugs, medicaments and biological substances

== ENCOUNTER 2019-05-21 19:44 | Emergency (ER) | payer OTHER ==
[~2019-05-21] VITALS: Ht 170.1 cm; Wt 119.3 kg
--- NOTE | ~2019-05-21 | EKG ---
[place], [place] ELECTROCARDIOGRAM REPORT NAME: ARTI MCGUIRE UNIT #: [id number] ROOM: DOCTOR: EPIPHANY DRAFT REPORT BIRTHDATE: [birth year] [facility] Test Date: 2019-05-21 Test Time: 22:44:01 Pat Name: ARTI MCGUIRE Department: ER Room: 7 Gender: F Therapeutic Strategy Lead: Alicja Lopez : 1970 Requested By: MARNI RIVERA Order Number: [id number] Reading MD: Mary Boss MD Measurements Intervals [place] Rate: 84 P: 25 AL: 155 QRS: 42 QRSD: 102 T: 30 QT: 388 QTc: 459 Interpretive Statements Sinus rhythm Borderline T abnormalities, anterior leads Baseline wander in lead(s) V4 Compared to ECG 04/09/2019 12:44:33 T-wave abnormality still present Electronically Signed On 05-27-2019 9:09:36 PDT by Mary Boss MD CM:EKGRPT:ELECTROCARDIOGRAM REPORT [id number] MARNI STEPHENSON DRAFT REPORT MARNI RIVERA DO
--- NOTE | ~2019-05-21 | EKG ---
[place], [place] ELECTROCARDIOGRAM REPORT NAME: ARTI MCGUIRE UNIT #: [id number] ROOM: DOCTOR: DEJAN DRAFT REPORT BIRTHDATE: [birth year] [facility] Test Date: 2019-05-21 Test Time: 19:55:29 Pat Name: ARTI MCGUIRE Department: ER Room: 7 Gender: F Family [employer] Teacher: JUAN CARLOS : 1970 Requested By: MARNI RIVERA Order Number: [id number] Reading MD: Mary Boss MD Measurements Intervals [place] Rate: 89 P: 23 FL: 156 QRS: 38 QRSD: 101 T: 32 QT: 380 QTc: 463 Interpretive Statements Sinus rhythm Low voltage, precordial leads Borderline T abnormalities, anterior leads Compared to ECG 04/09/2019 12:44:33 T-wave abnormality still present Electronically Signed On 05-27-2019 9:08:52 PDT by Mary Boss MD CM:EKGRPT:ELECTROCARDIOGRAM REPORT 54 MARNI STEPHENSON DRAFT REPORT
--- NOTE | ~2019-05-21 | EKG ---
[place], [place] ELECTROCARDIOGRAM REPORT NAME: ARTI MCGUIRE UNIT #: [id number] ROOM: DOCTOR: DEJAN DRAFT REPORT BIRTHDATE: [birth year] [facility] Test Date: 2019-05-21 Test Time: 19:47:43 Pat Name: ARTI MCGUIRE Department: Room: Gender: F Service Worker: : 1970 Requested By: MARNI RIVERA Order Number: [id number] Reading MD: Measurements Intervals [place] Rate: 84 P: 33 NE: 168 QRS: 50 QRSD: 100 T: 50 QT: 355 QTc: 420 Interpretive Statements Sinus rhythm RSR' in V1 or V2, right VCD or RVH Inferior infarct, acute (LCx) Baseline wander in lead(s) I,II,III,aVL,aVF,V1,V2,V6 Compared to ECG 04/09/2019 12:44:33 Right ventricular hypertrophy now present RSR' in V1 or V2 now present Myocardial infarct finding now present T-wave abnormality no longer present CM:EKGRPT:ELECTROCARDIOGRAM REPORT 46 [phone] MARNI STEPHENSON DRAFT REPORT MARNI RIVERA DO
[~2019-05-21 19:44] MED LIST changes: +ACID REDUCER 1150 MG PO; +CILOXAN 5 ML5 ML OPH; +IBUPROFEN600 MG PO; +LATUDA60 M1 PO; +NAPROXEN500 M1 PO; +PROMETHAZINE25 M1 PO
[2019-05-21 20:24] LABS: HEMATOCRIT 40.4 % (37.0-47.0); MEAN CELL VOLUME 89.8 fl (81.0-99.0); MEAN CORPUSCULAR HGB 28.9 pg (27.0-31.0); MEAN CORPUSCULAR HGB CONC 32.2 g/dl (33.0-37.0); MEAN PLATELET VOLUME 10.8 fl (9.6-12.3); PLATELET COUNT AUTOMATED 349 10*3/uL (130-400); RED CELL DISTRI WIDTH 13.7 % (0-14.5); WHITE BLOOD COUNT 13.2 10*3/uL (4.8-10.8)
[2019-05-21 20:35] LABS: ACT PARTIAL THROMBO TIME 26.3 SECONDS (20.0-32.1); INTERNATIONAL NORM RATIO 0.9 (2.0-3.5)
[2019-05-21 20:50] LABS: ALBUMIN 3.4 gm/dl (3.1-4.5); ALKALINE PHOSPHATASE 94 U/L (45-117); BUN 18 mg/dl (7-24); CHLORIDE 108 mmol/L (98-107); CREATININE 0.75 mg/dL (0.55-1.02); POTASSIUM 3.9 mmol/L (3.5-5.1); SGOT/AST 15 IU/L (3-35); SGPT/ALT 35 U/L (12-78); SODIUM 141 mmol/L (136-145); TOTAL PROTEIN 6.9 gm/dL (6.4-8.2)
[2019-05-21 20:51] LABS: TROPONIN I < 0.015 ng/ml (<0.045)
[2019-05-21 20:55] LABS: BASOPHILS 2 % (0-1); PLATELET SUFFICIENCY NORMAL (NORMAL); TOTAL CELLS COUNTED 100 #CELLS
== END 2019-05-22 00:50 | disposition home or self-care (01) ==
LOC: ED 19:44
PROVIDERS: Student in an Organized Health Care Education/Training Program
DX: R07.89 Other chest pain (principal); R11.0 Nausea; R42 Dizziness and giddiness; E78.5 Hyperlipidemia, unspecified; K21.9 Gastro-esophageal reflux disease without esophagitis; G43.909 Migraine, unspecified, not intractable, without status migrainosus; E66.01 Morbid (severe) obesity due to excess calories; F17.210 Nicotine dependence, cigarettes, uncomplicated; Z88.8 Allergy status to other drugs, medicaments and biological substances; Z79.899 Other long term (current) drug therapy; Z90.710 Acquired absence of both cervix and uterus; Z90.49 Acquired absence of other specified parts of digestive tract